=== PATIENT | female | born 1975 | race Caucasian/White ===

== ENCOUNTER → 2018-10-13 15:18 | Outpatient (CLI) | payer OTHER, SELFPAY ==
--- NOTE | 2018-10-13 15:28 | XR_ITS ---
EXAM: XR cervical spine 5V HISTORY: Neck pain ITS.REASON: CERVICAL PAIN ORDERING PHYSICIAN: Mirna Talley PATIENT AGE: 43 years COMPARISON: None FINDINGS: Normal alignment. No fracture or dislocation. No lytic or blastic change. No significant degenerative change. The disc spaces are preserved. IMPRESSION: Negative cervical spine
== END ==
PROVIDERS: PCP Family Medicine; Visit Provider Nurse Practitioner Family
DX: M54.2 Cervicalgia (principal)
CPT/HCPCS: 72050

== ENCOUNTER 2021-10-31 14:42 | Emergency (ER) | payer OTHER, SELFPAY ==
[2021-10-31 15:45] VITALS: BP 155/90; PULSE 92; RESP 18; TEMP 37.1; O2SAT 96; BMI 37.6
--- NOTE | 2021-10-31 15:59 | HMH.EDUTC ---
[facility] [place] Disposition Clinical Impression: Bronchitis Sinusitis Qualifiers: Sinusitis location: unspecified location Chronicity: unspecified Qualified Code(s): J32.9 - Chronic sinusitis, unspecified Disposition: Home, Self-Care Condition on Discharge: Good Instructions: Sinusitis, DI for Sinusitis, DI for Acute Bronchitis Additional Instructions: ? Start antibiotic today. Be sure to complete entire prescription even if feeling better ? Monitor temp. Tylenol every 4 hours as needed and / or ibuprofen every 6 hours as needed ( As long as your primary care physician has told you that it ok to take both. For fever/aches/pains ER if no less than 101 despite Tylenol or Motrin ? Humidifier/vaporizer or hot steamy shower ? Inhaler every 4-6 hours as needed like we discussed. If unsure how to use it, ask pharmacist to demonstrate how. Should help open airways and improve cough, wheezing, and shortness of breath *Tessalon Perles will not cause drowsiness but use at bedtime to help stop cough so that you may get some rest. Follow up IMMEDIATELY for new or worsening of symptoms OR no noticeable improvement over the next 48-72 hours. 911 immediately for any life threatening symptoms such as chest pain or difficulty breathing Prescriptions: Benzonatate [Benzonatate 100mg cap] 100 mg PO Q8HP PRN #15 cap PRN Reason: Cough Transmission Status: Received by [facility]/pharmacy #[id number] levoFLOXacin [Levaquin 500mg tab] 500 mg PO DAILY #7 tab Transmission Status: Received by [facility]/pharmacy #[id number] Albuterol Sulfate [Proair Hfa] 1 inh IH Q4H #1 each Transmission Status: Received by [facility]/pharmacy #[id number] Referrals: Renetta Roman MD [Primary Care Provider] - As needed Time of Disposition: 16:20 Medical Decision Making - Jefferson Inquiry Pt receiving controlled substance: No Jefferson was queried for this patient: No Vital Signs: 10/31/21 15:45 Temperature 98.7 F Temperature Source Oral Pulse Rate [Left] 92 H Respiratory Rate 18 Blood Pressure [Right Arm] 155/90 H Blood Pressure Mean [Right Arm] 111 02 Sat by Pulse Oximetry 96 - Lab Data Lab results reviewed: Yes: I reviewed the patient's lab results. Orders (Tests/Meds): ED MEDICATIONS Discontinued Medications Generic Name Dose Route Start Last Admin Trade Name Hayden PRN Reason Stop Dose Admin Methylprednisolone Sodium Succinate 125 mg 10/31/21 16:17 10/31/21 16:24 Methylprednisolone Sod Succ 125mg Vial IM 10/31/21 16:18 125 mg ONCE [address] [facility] [place] HPI - General Stated complaint: cough, congestion, h/a Time Seen by Provider: 10/31/21 15:59 Mode of Arrival: Ambulatory Source of Information: Patient Limitations: No Limitations Description of Symptoms (Recalled from Triage Doc. by RN): pt c/o pt c/o sinus congestion, allergies and a sever cough x5 days. pt states she has had this for a loong while and it comes and goes. pt states she has tried all sorts of meds. HEENT Symptoms (Recalled from RN notes): Yes Resp Symptoms (Recalled from RN notes): Yes Skin Symptoms (Recalled from RN notes): No MS Symptoms (Recalled from RN notes): No Functional Status (Recalled from RN notes): wnl - History of Present Illness Provider Complaint: Patient state that she has been having issues with her sinuses, cough,chest congestion and nasal congestion on and off for over a month States that for the last week she has been having sinus congestion an pressure along with drainage in the back of her throat and cough States that she has coughed so much that her throat feels raw - Related Data Previous Rx's Medication Instructions Recorded Albuterol Sulfate [Proair Hfa] 1 inh IH Q4H #1 each 10/31/21 Benzonatate [Benzonatate 100mg 100 mg PO Q8HP PRN #15 cap 10/31/21 cap] levoFLOXacin [Levaquin 500mg 500 mg PO DAILY #7 tab 10/31/21 tab] Allergies Allergy/AdvReac Type Severity Reaction Status Date / Time PENICILLIN Allergy Unknown Uncoded 07/30/17 14:27
[2021-10-31 17:06] VITALS: BP 155/90; PULSE 92; RESP 18; TEMP 37.1
== END 2021-10-31 17:36 | disposition home or self-care (01) ==
PROVIDERS: Emergency Provider Nurse Practitioner; PCP Family Medicine
DX: J20.9 Acute bronchitis, unspecified (principal); J32.9 Chronic sinusitis, unspecified
CPT/HCPCS: 96372; 99213; G0463

== ENCOUNTER 2022-06-25 08:10 | Emergency (ER) | payer OTHER, SELFPAY ==
--- NOTE | 2022-06-25 08:48 | XR_ITS ---
FINAL REPORT CLINICAL HISTORY: fall FINDINGS: 3 views of the left ribs were obtained. There are no rib fractures. There is no pleural fluid collection or pneumothorax. A single view of the chest demonstrates no acute cardiopulmonary process. IMPRESSION: Unremarkable left rib series. Reviewed, Interpreted and Dictated by Tim Musa MD Transcribed by Jesse Valenzuela Authenticated and [facility]
--- NOTE | 2022-06-25 08:48 | XR_ITS ---
FINAL REPORT CLINICAL HISTORY: fell FINDINGS: 3 views of the right knee were obtained. There is no acute fracture or dislocation. The joint spaces are intact. There is no soft tissue abnormality. IMPRESSION: No acute process. Reviewed, Interpreted and Dictated by Tim Musa MD Transcribed by Jesse Valenzuela Authenticated and [facility]
[2022-06-25 09:05] VITALS: BP 148/75; PULSE 81; RESP 18; TEMP 37.4; O2SAT 97; BMI 39.9
--- NOTE | 2022-06-25 09:22 | EXP.UTC ---
Discharge Plan Disposition Patient Disposition: Home, Self-Care Condition: Good Prescriptions Prescriptions: New etodolac 200 mg capsule 200 mg PO Q8H PRN (Reason: pain) Qty: 20 0RF No Action fluticasone propionate [Flonase Allergy Relief] 50 mcg/actuation spray,suspension 2 spray INTRANASAL DAILY Qty: 16 2RF Rx Instructions: administer into each nostril azelastine 205.5 mcg (0.15 %) spray,non-aerosol 2 spray INTRANASAL BID Qty: 30 4RF Rx Instructions: administer into each nostril Referrals Follow up/Referrals: Sebastián Rae DO [Staff Physician] - See instructions Renetta Roman MD [Primary Care Provider] - See instructions Activity Restrictions/Add. Instructions Additional Instructions/Restrictions: *weight bearing as tolerated *RICE, Rest the extremity, Ice 15-20 minutes 3-4 times daily, Compress- wear the alexandru wrap as discussed as much as possible to help reduce swelling and pain, Elevate the extremity when at rest *Alexandru wrap/Knee immobilizer is for support and help control swelling, use it except in the shower. Be sure that is not to tight but not to loose either *Elevate when resting? *Etodolac every 8 hours as needed for pain an inflammation. If need something more can take Tylenol in between doses of Ibuprofen to help Call Orthopedic office for appointment Return if needed Straight to ER if any life threatening symptoms Dont start Etodolac until this evening where you had Toradol injection Clinical Impressions Clinical Impression: Knee sprain Qualifiers: Encounter type: initial encounter Involved ligament of knee: unspecified ligament Laterality: right Qualified Code(s): S83.91XA - Sprain of unspecified site of right knee, initial encounter Instructions Patient Instructions: How to Use Crutches, Knee Sprain, DI for Knee Sprain Discharge ED Provider: Kay Cordoba [facility] [place] [facility] [place] General Stated complaint: AO 06/23@home@0905 pain in Rt knee Mode of Arrival: Ambulatory Source of Information: Patient Limitations: No Limitations Time Seen by Provider: 06/25/22 09:15 Description of Symptoms (Recalled from Triage Doc. by RN): pt comes in with c/o right knee pain. pt fell on saturday on her porch. pt also states she has a bruise on left side of torso. HEENT Symptoms (Recalled from RN notes): No Resp Symptoms (Recalled from RN notes): No Skin Symptoms (Recalled from RN notes): No MS Symptoms (Recalled from RN notes): Yes Functional Status (Recalled from RN notes): n/a History of Present Illness Provider Complaint: Patient states that she slipped on wet porch on Saturday and twisted her right knee and has bruising on her left ribs States that her knee hurts worse than her ribs and feels like it is gonna give on her States that pain is on the inside of her right knee cap area States that she hasnt noticed any bruising or swelling but pain is worse today so she came in Related Data Previous Rx's Medication Instructions Recorded azelastine 205.5 mcg (0.15 %) 2 spray intranasal BID #30 mL 12/05/21 nasal spray fluticasone propionate 50 2 spray intranasal DAILY #16 grams 12/05/21 mcg/actuation nasal spray,suspension (Flonase Allergy Relief) etodolac 200 mg capsule 200 mg PO Q8H PRN pain #20 caps 06/25/22 Allergies Allergy/AdvReac Type Severity Reaction Status Date / Time Penicillins Allergy Verified 06/25/22 09:08 Worker's Comp Is this a Worker's Comp case?: No PFSH PFSH Social History Smoking Status: Never smoker alcohol intake: current substance use type: denies use current occupational status: employed Travel in the last 8 weeks: None housing: house ROS Obtained: Yes All systems reviewed & no additional complaints except as documented and Yes Systems reviewed as appropriate & no additional complaints except as documented Constitutional Constitutional: Reports system reviewed and no additional comp
[2022-06-25 10:24] VITALS: BP 148/75; PULSE 81; RESP 18; TEMP 37.4
== END 2022-06-25 10:25 | disposition home or self-care (01) ==
PROVIDERS: Emergency Provider Nurse Practitioner; PCP Family Medicine
DX: S83.91XA Sprain of unspecified site of right knee, initial encounter (principal); S20.212A Contusion of left front wall of thorax, initial encounter; Z79.51 Long term (current) use of inhaled steroids; W01.198A Fall on same level from slipping, tripping and stumbling with subsequent striking against other object, initial encounter
CPT/HCPCS: 71101; 73562; 96372; 99213; G0463

== ENCOUNTER 2025-06-26 09:38 | Outpatient (CLI) | payer SELFPAY | END 2025-06-26 23:59 | LOC: LAB.DROPOF 06-28 09:41 | PROVIDERS: PCP Family Medicine; Visit Provider Nurse Practitioner Family | DX: N39.0 Urinary tract infection, site not specified (principal) | CPT/HCPCS: 87086 ==